=== PATIENT | male | born 1990 | race African-American/Black ===

== ENCOUNTER 2017-01-05 17:19 | Emergency (ER) | payer SELFPAY ==
[2017-01-05] MEDS ORDERED: LIDOCAINE VISCOUS 2% 15 ML UDC MM STA (18:33)
[2017-01-05] MEDS ORDERED: MAG HYDROX/AL HYDROX/SIMETH 30 ML UDC PO STA (18:33)
[2017-01-05] MEDS ORDERED: PHENobarb/HYOSCY/ATROPINE/SCOP 5 ML SYRINGE PO STA (18:33)
--- NOTE | 2017-01-05 18:36 | ED Physician Documentation ---
PD HPI CHEST PAIN - Stated complaint Stated Complaint: CHEST PAIN - Chief complaint Chief Complaint: Resp - History obtained from History obtained from: Patient - History of Present Illness Timing - onset: How many days ago (3) Timing - details: Waxing and waning Quality: Indigestion Location: Substernal Worsened by: Inspiration Associated symptoms: No: Shortness of air, Nausea, Vomiting Similar symptoms before: No diagnosis (He reports history of similar symptoms about one and a half years ago.) - Treatment prior to arrival Treatment prior to arrival: Mucinex - Additional information Additional information: The patient is an otherwise healthy 26-year-old male who presents with congestion of 3 days duration. He reports cough, without fever or shortness of breath. He also reports epigastric discomfort that is worse with inspiration. He denies headache, sore throat, nausea or vomiting. He reports history of similar symptoms about one and a half years ago, but did not seek medical attention. Social history is significant for marijuana smoking. He denies tobacco use. Review of Systems Constitutional: denies: Fever Eyes: denies: Irritation Ears: denies: Ear pain Nose: reports: Congestion Throat: denies: Sore throat Cardiac: reports: Chest pain / pressure (substernal/epigastric) Respiratory: reports: Cough. denies: Dyspnea GI: denies: Abdominal Pain, Nausea, Vomiting : denies: Dysuria Skin: denies: Rash Musculoskeletal: denies: Back pain, Extremity swelling Neurologic: denies: Headache PD PAST MEDICAL HISTORY - Past Medical History Past Medical History: Yes Cardiovascular: None Respiratory: Asthma Neuro: None Endocrine/Autoimmune: None GI: None - Past Surgical History Past Surgical History: Yes Ortho: ACL reconstruction - Allergies Allergies/Adverse Reactions: Allergies Allergy/AdvReac Type Severity Reaction Status Date / Time No Known Drug Allergies Allergy Verified 01/05/17 17:24 - Social History Does the pt smoke?: No Smoking Status: Never smoker Does the pt drink ETOH?: No Does the pt have substance abuse?: No Substance Use and Type: Marijuana - Immunizations Immunizations are current?: Yes - POLST Patient has POLST: No PD ED PE NORMAL - Vitals Vital signs reviewed: Yes (Borderline hypertension initially.) - General General: Alert and oriented X 3, Well developed/nourished - HEENT HEENT: Atraumatic, EOMI, Ears normal, Pharynx benign - Neck Neck: Supple, no meningeal sign, No adenopathy, No JVD - Cardiac Cardiac: RRR, No murmur - Respiratory Respiratory: No respiratory distress, Clear bilaterally, Other (No chest wall tenderness to palpation.) - Abdomen Abdomen: Soft, Non tender, No organomegaly - Back Back: No spinal TTP - Derm Derm: No rash - Extremities Extremities: No edema, No calf tenderness / cord - Neuro Neuro: Alert and oriented X 3, No motor deficit, Normal speech Results - Vitals Vitals: Oxygen O2 Source Room air - EKG (time done) 17:32 Rate: Rate (enter#) (66) Rhythm: NSR [place]: Normal Intervals: Normal TN QRS: Normal Ischemia: ST elevation c/w repol Computer interpretation: Agree with computer PD MEDICAL DECISION MAKING - ED course Complexity details: re-evaluated patient, considered differential, d/w patient ED course: The patient's presentation is most consistent with viral upper respiratory infection, and gastroesophageal reflux. An electrocardiogram reveals early repolarization, but no evidence of acute ischemic abnormality or rhythm abnormality. I discussed getting a CXR with the patient, and he agrees that the low potential yield does not warrant the radiation exposure. Treatment in the emergency department included administration of GI cocktail, and acetaminophen 650 mg orally. He reports improvement of his substernal/ epigastric discomfort with the above treatment. I discussed with him the expected course of illness, symptomatic treatment and outpatient follow-up, as well as potentially worrisome signs or symptoms that should prompt reevaluation in the emergency department. Departure - Departure Disposition: 01 Home, Self Care Clinical Impression: Viral URI GERD (gastroesophageal reflux disease) Qualifiers: Esophagitis presence: esophagitis presence not specified Qualified Code(s): K21.9 - Gastro-esophageal reflux disease without esophagitis Condition: Stable Instructions: ED URI Viral, ED GERD Follow-Up: [facility] [Provider Group] Comments: Drink plenty of fluids. You can use acetaminophen, up to 650 mg 4 times daily if needed for discomfort. You can use liquid antiacids, such as Maalox or Mylanta, if needed for epigastric discomfort. Follow up with primary physician within 2 weeks. Call to schedule an appointment. Return to the emergency room if you develop increasing difficulty breathing, increasing pain, or otherwise worsening symptoms. Discharge Date/Time: 01/05/17 19:41
[2017-01-05] MEDS ORDERED: LIDOCAINE VISCOUS 2% 15 ML UDC MM ONE (18:41)
[2017-01-05] MEDS ORDERED: PHENobarb/HYOSCY/ATROPINE/SCOP 5 ML SYRINGE PO ONE (18:42)
[2017-01-05] MEDS ORDERED: MAG HYDROX/AL HYDROX/SIMETH 30 ML UDC ONE (18:42)
[2017-01-05 19:18] VITALS: BP 134/69
[2017-01-05] MEDS ORDERED: ACETAMINOPHEN 325 MG TABLET PO STA (19:27)
[2017-01-05] MEDS ORDERED: ACETAMINOPHEN 325 MG TABLET PO ONE (19:31)
== END 2017-01-05 19:41 | disposition home or self-care (01) ==
LOC: ED 17:19
DX: J06.9 Acute upper respiratory infection, unspecified (principal); B97.89 Other viral agents as the cause of diseases classified elsewhere; J45.909 Unspecified asthma, uncomplicated
CPT/HCPCS: 93010; 99283; A9270